=== PATIENT | female | born 1985 | race African-American/Black ===

== ENCOUNTER 2023-04-19 18:02 | Emergency (ER) | payer OTHER ==
[~2023-04-19] VITALS: Ht 167.6 cm; Wt 81.0 kg
[2023-04-19 18:05] VITALS: TEMP 98.4
[2023-04-19 18:13] LABS: COVID AG,FIA SOURCE NASAL SWAB
[2023-04-19 18:46] LABS: SARS-COV2 (COVID) ANTIGEN,FIA Negative (Negative)
[2023-04-19 18:50] LABS: RAPID GROUP A STREP NEGATIVE (NEGATIVE)
[2023-04-19 18:52] LABS: INFLUENZA TYPE B NEGATIVE FOR TYPE B (NEGATIVE)
[2023-04-19 18:56] LABS: INFLUENZA TYPE A NEGATIVE FOR TYPE A (NEGATIVE)
[2023-04-19 19:52] VITALS: BP 146/100; PULSE 98; RESP 16
[2023-04-19] MEDS ORDERED: AZIT250T9 PO (21:12)
[2023-04-19] MEDS ORDERED: BENZ-227 PO (21:12)
[2023-04-20] MEDS ORDERED: AZIT250T9 PO (09:20)
[2023-04-20] MEDS ORDERED: BENZ-227 PO (09:20)
== END 2023-04-19 21:43 | disposition home or self-care (01) ==
LOC: EMS 18:04
DX: J40 Bronchitis, not specified as acute or chronic (principal); I10 Essential (primary) hypertension; Z20.822 Contact with and (suspected) exposure to COVID-19
CPT/HCPCS: 71045; 87430; 87804; 99284